=== PATIENT | male | born 1960 | race African-American/Black ===

== ENCOUNTER 2016-11-14 06:21 | Emergency (ER) | payer OTHER ==
--- NOTE | 2016-11-14 08:24 | ER Document Report ---
ED Skin Rash/Insect Bite/Abscs <FCO DOMINIQUE - Last Filed: 11/14/16 08:24> - General Mode of Arrival: Ambulatory Information source: Patient TRAVEL OUTSIDE OF THE [place] IN LAST 30 DAYS: No - HPI Patient complains to provider of: Tender/swollen area Onset: Yesterday Onset/Duration: Gradual, Worse Quality of pain: No pain Pain Level: Denies Skin Character: Swelling Skin Temperature: Warm Identify cause: No - Possible bug bite <MAX LARES - Last Filed: 11/14/16 09:42> - General Chief Complaint: Scrotal Pain, Acute Onset Stated Complaint: TESTICULAR SWELLING Notes: Patient is a 56-year-old male presenting to the emergency department with concerns of penile and scrotal swelling onset approximately 6 PM last night and progressively worsening. Patient states he was sitting watching the news when he first noticed the swelling. Patient reports a small lesion on the shaft of his penis which he cannot recall how it occurred, but believes it may be a bug bite. Patient has a history of hypertension and has been out of his medication for 2 days. Patient states he normally takes amlodipine 5 mg. Patient is also taking hydrochlorothiazide, but he cannot remember the dose of that medication. He has also been out of that medication for 2 days. Patient states that the [facility] is supposed to be mailing his prescriptions, and he should receive them in 5 days. (MAX LARES) - Related Data Allergies/Adverse Reactions: No Known Allergies Allergy (Unverified 11/14/16 06:40) Past Medical History - General Information source: Patient - Social History Smoking Status: Current Every Day Smoker Cigarette use (# per day): Yes - 1 ppd Frequency of alcohol use: Heavy - 4-5 beers/day Drug Abuse: None Family History: Reviewed & Not Pertinent Patient has suicidal ideation: No Patient has homicidal ideation: No - Past Medical History Cardiac Medical History: Reports: Hx Hypertension Endocrine Medical History: Reports: Hx Diabetes Mellitus Type 2 Renal/ Medical History: Denies: Hx Peritoneal Dialysis Surgical Hx: Negative - Immunizations Hx Diphtheria, Pertussis, Tetanus Vaccination: Yes <MAX LARES - Last Filed: 11/14/16 09:42> Review of Systems - Review of Systems Constitutional: No symptoms reported EENT: No symptoms reported Cardiovascular: No symptoms reported Respiratory: No symptoms reported Gastrointestinal: No symptoms reported Genitourinary: No symptoms reported Male Genitourinary: See HPI, Other - Penis and scrotal swelling Musculoskeletal: No symptoms reported Skin: No symptoms reported Hematologic/Lymphatic: No symptoms reported Neurological/Psychological: No symptoms reported -: Yes All other systems reviewed and negative <MAX LARES - Last Filed: 11/14/16 09:42> Physical Exam - Vital signs Interpretation: Hypertensive - Off medication x 2 days - General General appearance: Appears well, Alert - HEENT Head: Normocephalic, Atraumatic Eyes: Normal Pupils: PERRL - Respiratory Respiratory status: No respiratory distress Chest status: Nontender Breath sounds: Normal Chest palpation: Normal - Cardiovascular Rhythm: Regular Heart sounds: Normal auscultation Murmur: No - Abdominal Inspection: Normal Tenderness: Nontender - Genitourinary Tenderness: Nontender, Other - 1.5 mm ulcerated lesion to the left inferior lateral aspect of the ventral penis shaft. Distal shaft grossly edematous. Scrotum mildly edematous. No tenderness.. No: Testicle tender, Epididymis tender Scrotum: Swelling - Back Back: Normal, Nontender - Extremities General upper extremity: Normal inspection, Nontender General lower extremity: Normal inspection, Nontender - Neurological Neuro grossly intact: Yes Cognition: Normal Orientation: AAOx4 Alexander Coma Scale Eye Opening: Spontaneous Alexander Coma Scale Verbal: Oriented Dell Coma Scale Motor: Obeys Commands Dell Coma Scale Total: 15 Speech: Normal - Psychological Associated symptoms: Normal affect, Normal mood - Skin Skin Temperature: Warm Skin Moisture: Dry Skin Color: Normal <MAX LARES - Last Filed: 11/14/16 09:42> - Vital signs Vitals: Temp Pulse Resp BP Pulse Ox 98.2 F 103 H 16 177/93 H 98 11/14/16 06:51 11/14/16 06:51 11/14/16 06:51 11/14/16 06:51 11/14/16 06:51 Course - Diagnostic Test Radiology reviewed: Reports reviewed - Scrotal ultrasound shows some scrotal wall edema, no other abnormality <FCO DOMINIQUE - Last Filed: 11/14/16 08:24> Discharge <FCO DOMINIQUE - Last Filed: 11/14/16 08:24> <MAX LARES - Last Filed: 11/14/16 09:42> - Discharge Clinical Impression: Edema of penis, Edema of scrotum, Has run out of medications High blood pressure Qualifiers: Hypertension type: essential hypertension Qualified Code(s): I10 - Essential ( primary) hypertension Condition: Stable Additional Instructions: You seem to have a small sore or bite on your penis which is the origin of the edema. Take the antibiotics as prescribed. Take the blood pressure medications as prescribed until he your prescriptions arrive and male. Follow-up with your doctor at [facility]. RETURN TO THE EMERGENCY ROOM IF ANY NEW OR WORSENING SYMPTOMS. Prescriptions: Amlodipine Besylate 5 mg PO DAILY #15 tab Doxycycline Hyclate 100 mg PO BID #14 tablet Hydrochlorothiazide 12.5 mg PO DAILY #15 tablet Referrals: LUIS EDUARDO CRESPO MD [Primary Care Provider] - Follow up as needed Scribe Attestation: 11/14/16 08:29 I personally performed the services described in the documentation, reviewed and edited the documentation which was dictated to the scribe in my presence, and it accurately records my words and actions. (FCO DOMINIQUE) Scribe Documentation - Scribe Written by Scribjaden:: Max Lares 11/14/2016 [id number] acting as scribe for :: Tal <MAX LARES - Last Filed: 11/14/16 09:42>
[2016-11-14 08:42] VITALS: BP 171/103
== END 2016-11-14 08:42 | disposition home or self-care (01) ==
LOC: ER 06:21
DX: N50.89 Other specified disorders of the male genital organs (principal); N48.89 Other specified disorders of penis; I10 Essential (primary) hypertension; T46.1X6A Underdosing of calcium-channel blockers, initial encounter; Z91.14 Patient's other noncompliance with medication regimen; Z79.899 Other long term (current) drug therapy; F17.210 Nicotine dependence, cigarettes, uncomplicated; E11.9 Type 2 diabetes mellitus without complications
CPT/HCPCS: 76870; 93976; 99284